=== PATIENT | male | born 1975 | race Caucasian/White ===

== ENCOUNTER 2021-03-01 17:35 | Emergency (ER) | payer OTHER ==
[~2021-03-01] VITALS: Ht 180.3 cm; Wt 90.9 kg
[2021-03-01 19:15] VITALS: BP 128/78
== END 2021-03-01 19:00 | disposition home or self-care (01) ==
LOC: ED 17:35
DX: S63.8X2A Sprain of other part of left wrist and hand, initial encounter (principal); W17.89XA Other fall from one level to another, initial encounter; Y93.39 Activity, other involving climbing, rappelling and jumping off